=== PATIENT | female | born 1990 | race Caucasian/White ===

== ENCOUNTER 2016-11-24 01:10 | Emergency (ER) | payer OTHER ==
[~2016-11-24] VITALS: Ht 160 cm; Wt 117.9 kg
[~2016-11-24 01:10] MED LIST: AUGMENTIN 875-1 EACH PO; ENDOCET 325 MG-1 TA1 PO; FIORICET 50-301 EACH PO; IBUPROFEN200 M3 PO; LIORESAL 10MG T10 MG PO; NAPROSYN500 M1 PO; NEXPLANON68 M1; PERCOCET 325 MG1 TA2 PO; TRAMADOL HCL50 MG PO
[2016-11-24 01:22] VITALS: BP 113/67
--- NOTE | 2016-11-24 01:45 | ED THROAT/DENTAL COMPLAINT ---
History of Present Illness General Chief Complaint: Sore Throat, Dental Pain Stated Complaint: SORE THROAT, RIGHT EAR PAIN PER PT Source: patient Exam Limitations: no limitations Vital Signs & Intake/Output Vital Signs & Intake/Output Vital Signs Date Time Temp Pulse Resp B/P Pulse O2 O2 Flow FiO2 Ox Delivery Rate 11/24 0122 98.7 92 18 113/67 97 Room Air Allergies Coded Allergies: NO KNOWN ALLERGIES (10/27/14) Reconcile Medications Amoxicillin 875 MG TABLET 1 TAB PO BID INFECTION Butalb/Acetaminophen/Caffeine (Fioricet 50-300-40 MG Capsule) 1 EACH CAPSULE 1 -2 TAB PO Q6H PRN HEADACHE Ciprofloxacin/Hydrocortisone (Cipro Hc Otic Suspension) 0.2 %-1 % DROPS.SUSP 3 GTT OT BID OTITIS EXTERNA Etonogestrel (Nexplanon) 68 MG IMPLANT CONTROL (Reported) Ibuprofen 200 MG CAPSULE 3 CAP PO PRN PAIN (Reported) Naproxen (Naprosyn) (Unknown Strength) TABLET 2 TAB PO PRN PAIN (Reported) Triage Note: PT TO ED C/O OF THROAT PAIN FOR TWO DAYS PT REPORTS GETTING A SUDDEN ONSET OF RIGHT SIDED EAR PAIN AND TAKING 800 MG MOTRIN AT 11 PM LAST NIGHT. PT DENIES FEVER AND CHILLS. Triage Nurses Notes Reviewed? yes Onset: Afternoon Duration: SINCE 10 pm Timing: single episode today Injury Environment: home Severity: moderate, severe No Modifying Factors: none Associated Symptoms: SORE THROAT : No Patient currently breastfeeds: No HPI: 26-year-old who presents to the ER with chief complaint of sore throat for the last 3 days but suddenly abrupt onset of right ear pain that started at 10 PM last night. She took ibuprofen without relief. Denies any fever but has some subjective chills. Her was sick with strep throat 2 weeks prior. Past History Travel History Traveled to [place] past 21 day No Medical History Any Pertinent Medical History? 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 No Review of Systems Review of Systems Constitutional: Reports: chills. Denies: fever. EENTM: Reports: ear pain, throat pain. Respiratory: Reports: cough. Denies: short of breath, sputum production. Physical Exam Physical Exam General Appearance: well developed/nourished, alert, awake, mild distress, obese Head: atraumatic, normal appearance Eyes: Bilateral: normal appearance, PERRL, EOMI. Ears: Right: discharge, erythema, swelling, tenderness, other (UNABLE TO VISUALIZE TM( EDEMA)). Nose: normal inspection Mouth/Throat: normal mouth inspection, pharynx normal Neck: normal inspection, supple, full range of motion Cardiovascular/Respiratory: normal breath sounds, normal peripheral pulses, regular rate/rhythm Neurologic/Psych: no motor/sensory deficits, awake, alert, oriented x 3 Skin: intact, normal color, warm/dry Core Measures ACS in differential dx? No Severe Sepsis Present: No Septic Shock Present: No Progress Differential Diagnosis: OTITIS MEDIA, OTITIS EXTERNA Plan of Care: Orders Procedure Date/time Status THROAT CULTURE W/QUICK STREP 11/24 0130 Active Severe right-sided otitis externa. No mastoid tenderness. Patient is not a diabetic. She does not swim. Unable to visualize tympanic membrane. I will opt to treat for both otitis media and externa at this time. (VASQUEZ GUZMAN,XENA) Departure Departure Time of Disposition: 015 Disposition: HOME OR SELF CARE Condition: Stable Clinical Impression Primary Impression: Otitis externa Referrals: KIMBERLEY GUZMAN,FLOR Stewart (PCP/Family) Additional Instructions: Take the amoxicillin and use the eardrops as directed. Take ibuprofen or Tylenol as needed for pain. Please follow up with her primary care doctor in the office. Return as needed to the ER. Departure Forms: Customer Survey General Discharge Information Prescriptions: Current Visit Scripts Amoxicillin 1 TAB PO BID #19 TAB Ciprofloxacin/Hydrocortisone (Cipro Hc Otic Suspension) 3 GTT OT BID #10 ML
[2016-11-24] MEDS ORDERED: AMOXICILLIN875 M1 PO (01:53)
[2016-11-24] MEDS ORDERED: CIPRO HC OTIC S10 ML OT (01:55)
== END 2016-11-24 02:23 ==
LOC: ERH 01:10
DX: H60.91 Unspecified otitis externa, right ear (principal)